=== PATIENT | female | born 1950 | race Caucasian/White ===

== ENCOUNTER 2017-02-18 10:01 | Emergency (ER) | payer MEDICARE, OTHER ==
[2017-02-18 10:35] VITALS: BP 169/86
[2017-02-18] MEDS ORDERED: DIPHTH,PERTUSS(ACELL),TET VAC 0.5 ML VIAL IM ONE ×2 (10:46→11:07)
--- NOTE | 2017-02-18 11:05 | ERNOTE ---
Animal Bite ER Date of Service: 02/18/17 Presenting Symptoms: bitten Time Seen by Provider: 02/18/17 10:16 Source: patient Exam Limitations: no limitations Immunizations: IMMUNIZATION HX Immunizations Up to Date Yes Allergies/Adverse Reactions: Allergies No Known Allergies Allergy (Verified 02/18/17 10:35) Home Medications: HOME MEDICATIONS Calcium Carbonate/Vitamin D3 [Calcium + Vitamin D Tablet] 1 each PO DAILY [Last Taken 11/17/12] Multivitamin [Multiple Vitamins Daily] 1 each PO DAILY 11/17/12 [Last Taken 03/25] Holgate-3 Fatty Acids/Fish Oil [Holgate 3 Fish Oil Softgel] 1 each PO DAILY [Last Taken 11/17/12] Ibuprofen [Advil] 400 mg PO Q4H PRN 11/19/12 [Last Taken Unknown] Narrative: 66-year-old female presents to the emergency room for a dog bite to her left arm. Patient states that she was walking past a house when a dog came up on her left side and bit her left arm. Patient went home and wash the wound, put a Band-Aid on it and came to the emergency room. Patient states that the dog's transportation services representative was in the yard at the time of the incident but did not say anything to her. He is not known to the patient. The patient states that this is the first time she has seen the dog in this yard Patient states that she walks this route frequently. Date (Duration): 02/18/17 Onset Time: today Location of Incident: Reports: street Animal Type: Reports: dog Animal Appearance: other - PD notified. dog is not known to patient Animal's Immunization Status: Reports: unknown - pd aware of bite, dog is unknown to patient Observation/Capture: Reports: animal unknown Context of Attack: Reports: unprovoked attack Severity of injury: Reports: bitten Location of Injury: Reports: upper extremity (L) Body Front/Back Adult: 1 - bite site 1.5x1.5 open area. superficial abrasion Associated symptoms: Denies: numbness distally, pain on movement, tingling Review of Systems - Review of Systems Constitutional: Present: no symptoms reported EYE: Present: no symptoms reported ENT: Present: no symptoms reported Respiratory: Present: no symptoms reported Cardiology: Present: no symptoms reported Gastrointestinal/Abdominal: Present: no symptoms reported Genitourinary: Present: no symptoms reported Musculoskeletal: Present: no symptoms reported Skin: Present: See HPI Neurological: Present: no symptoms reported Endocrine: Present: no symptoms reported Hematologic/Lymphatic: Present: no symptoms reported Psych: Present: no symptoms reported - Patient's Past Medical History Patient History - Medical: No pertinent hx Patient History - Cardiac/Respiratory: No pertinent hx Patient History - Cancer: No Hx of Cancer Patient History - Surgical Procedures: Orthopedic - Social History Smoking Status: Never smoker Have you smoked in the past 12 months: No - Immunizations Immunizations Up to Date: Yes Physical Exam - Physical Exam General Appearance: Present: wd/wn, alert, other - upset about the incident Eye Exam: Normal inspection: bilateral Ears, Nose, Throat: Present: normal ENT inspection Neck: Present: normal inspection Respiratory: Present: no respiratory distress, lungs clear Cardiovascular/Chest: Present: regular rate, rhythm, no murmur Peripheral Pulses: N=norm/S=strong/W=weak/B=bound/A=absent: Radial (R): Normal, Radial (L): Normal Gastrointestinal/Abdominal: Present: normal bowel sounds Extremity Exam: Present: normal except - - left outer lower arm has a small 1..5c1.5 circulare leasion with a superficial liner abrasion, with small areas of petechi surrounding the open area. Neurological Exam: Present: alert, oriented, normal mood/affect Skin Exam: Present: warm/dry, other - see extremity exam ED Progress - Vital Signs Patient's Vital Signs:: I have reviewed the patient's vital signs. Vital Signs: Vital Signs 02/18/17 10:32 Temperature 37.1 C Pulse Rate 85 Respiratory 14 Rate Blood Pressure 169/86 O2 Sat by Pulse 100 Oximetry - Progress/Reassessment Chief Complaint: Animal Bite Progress:: Pain free at discharge Plan - Plan Plan: Wound cleansed and topical anti-biotic applied with a Band-Aid. Patient is aware that the Police Department has been notified regarding the animal bite. Given a tetanus booster. Patient was informed that the Police Department should be contacting her regarding this issue and she should follow-up with his primary care in the next 2-3 days. Officer [place] spoke with patient regarding incident. According to him dog will be quarantined for the next 10 days because the dog was not vaccinated per the dog transportation services representative. Departure Clinical Impression: Dog bite of arm Qualifiers: Encounter type: initial encounter Laterality: left Qualified Code(s): S41.152A - Open bite of left upper arm, initial encounter - Departure Disposition: Home Follow Up Needed Condition: Stable Instructions: Animal Bite Additional Instructions: Continue any previous home medications as directed. May take [id number] pain medications as needed for discomfort. Return to the emergency room if any signs and symptoms of infection appear or if pain is not able to be controlled with [id number] pain medication. Follow-up with your doctor in the next 2 -3 days.[place] [employer] will be in contact with you regarding dogs condition. Referrals: Trisha Greenfield MD [Primary Care Provider] -
--- OUTSIDE RECORDS SUMMARY | 2017-02-18 11:18 | XMS REPORT | Continuity of Care Document ---
:1950 Author Organization [facility] ([facility]) Address [address] [place] [address] Phone [phone] Care Team Providers Name Role Phone Unavailable Primary Care Provider Unavailable Source Comments This disclosure is being made pursuant to the Care Everywhere program, applicable federal and state laws, and may not contain all informaitonavailable regarding this patient.[facility] ([facility]) Active Allergies and Adverse Reactions Not on File Current Medications Not on file Active Problems Not on file Social History Tobacco Use Types Packs/Day Years Used Date Never Assessed Plan of Care Health Maintenance Due Date Last Done Comments HCV Screening 1950 Hepatitis B Vaccine (1 of 3 - Primary Series) 1950 Tdap Vaccine 1960 Lipid Disorder Screening 1967 Td Vaccine 1967 Mammogram 1989 Colonoscopy 1999 Zoster Vaccine 2009 Osteoporosis Screening (DXA Bone Density) 2014 Pneumococcal Vaccine (1 of 2 - PCV13) 2014 Influenza Vaccine: Seasonal (#1) 06/13/2016 Results from Last 3 Months Not on file
== END 2017-02-18 11:23 | disposition home or self-care (01) ==
LOC: ER 10:01
DX: S41.152A Open bite of left upper arm, initial encounter (principal); W54.0XXA Bitten by dog, initial encounter; Y93.01 Activity, walking, marching and hiking; Y92.480 Sidewalk as the place of occurrence of the external cause; Z23 Encounter for immunization

== ENCOUNTER 2017-06-12 08:06 | Day surgery (SDC) | payer MEDICARE, OTHER ==
[~2017-06-12 08:06] MED LIST: RINGERS SOLUTION,LACTATED 1,000 ML IV PRN
[2017-06-12] MEDS ORDERED: RINGERS SOLUTION,LACTATED 1,000 ML IV PRN (09:55)
[2017-06-12 10:55] VITALS: BP 111/69
--- NOTE | 2017-06-12 17:30 | OR ---
Operative Report - Dictated Report Narrative: OPERATIVE REPORT DATE OF OPERATION: 06/12/2017 PREOPERATIVE DIAGNOSIS: History of colon polyps POSTOPERATIVE DIAGNOSIS: Normal colonoscopy OPERATION: Colonoscopy SURGEON: Citlaly Ornelas MD ANESTHESIA: SADAF Richardson CRNA INDICATIONS FOR PROCEDURE: The patient is a 66-year-old female who had 3 tubular adenomas removed in 2008. She had 2 tubular adenomas removed in 2011. She is brought for surveillance. FINDINGS: Very capacious colon otherwise normal exam to the cecum NARRATIVE OF PROCEDURE: The patient was identified in the holding area, and prior to the administration of anesthetic, a multidisciplinary timeout was observed. With the patient in the left lateral position and after the administration of intravenous sedation, the perineum was inspected. There was no evidence of pilonidal disease or skin breakdown. The external appearance of the anus was normal. Sphincter tone was good. The flexible fiberoptic colonoscope was inserted into the rectum which was insufflated with air. The rectal mucosa and submucosal vascular pattern appeared normal, the prep was seen to be complete. The scope was advanced through the sigmoid colon, up the descending colon, and around the splenic flexure where the triangular haustral architecture of the transverse colon was seen. The scope was advanced across the transverse colon, around the hepatic flexure to the cecum, where the confluence of tenia and the ileocecal valve were identified. The mucosa at this level appeared normal. The scope was then slowly withdrawn in a circular fashion so that all aspects of colonic mucosa were inspected. The colon was extremely capacious and character requiring standard reduction maneuvers to reach the cecum. The haustral architecture appeared well preserved throughout with no evidence of external compression. The mucosa and submucosal vascular pattern appeared normal, specifically there was no gross evidence to suggest colitis or inflammatory bowel disease and no AV malformations were seen. No diverticulosis was demonstrated No polyps were encountered. The scope was gradually withdrawn to the level of the rectum. As much insufflated air as possible was removed. The scope was withdrawn from the patient and the procedure terminated. The patient tolerated the anesthetic and procedure well without complication and was transferred back to the ambulatory surgery area awake and in stable condition. The patient remained stable throughout a period of postoperative observation. She denied abdominal discomfort, was able to tolerate by mouth intake, and was up without assistance. I shared the operative findings with the patient and she was given copies of the photographs which appear in the medical record. She was discharged home with instructions not to engage in hazardous activity today , but may resume normal activity tomorrow, and advance diet as tolerated. She is to continue those medications as listed in the history and physical exam. RECOMMENDATION: Colon surveillance in 5 years Review to electronically signed
== END 2017-06-12 08:07 | disposition home or self-care (01) ==
LOC: AMB 08:06
PROVIDERS: ATTEND Surgery
PROC: 0DJD8ZZ Inspection of Lower Intestinal Tract, Via Natural or Artificial Opening Endoscopic (ICD-10-PCS; principal; 2017-06-12 08:45)
DX: Z12.11 Encounter for screening for malignant neoplasm of colon (principal); I10 Essential (primary) hypertension; Z86.010 Personal history of colon polyps; Z87.891 Personal history of nicotine dependence; Z68.25 Body mass index [BMI] 25.0-25.9, adult